=== PATIENT | male | born 1955 | race Caucasian/White ===

== ENCOUNTER → 2025-02-18 | Outpatient (CLI) | payer MEDICARE ==
--- NOTE | 2025-02-19 16:42 | HMCIMG ---
US VENOUS DOPPLER BILATERAL REASON: Localized edema COMPARISON: None Technique: Bilateral venous doppler ultrasound was performed with spectral analysis and color flow imaging technique. FINDINGS: There is a normal appearance of the common femoral, deep femoral, the profunda femoris and popliteal veins. Proximal calf veins appear normal as well. There is normal response to compression and augmentation. There is no evidence of deep venous thrombosis. IMPRESSION: Normal bilateral lower extremity venous Doppler ultrasound.
== END | disposition home or self-care (01) ==
LOC: RAH 14:23
PROVIDERS: ATTEND Internal Medicine
DX: M79.662 Pain in left lower leg (principal); M79.661 Pain in right lower leg; R60.0 Localized edema
CPT/HCPCS: 93925; 93970